=== PATIENT | male | born 1960 | race Two or more races ===

== ENCOUNTER 2023-02-01 07:45 | Inpatient (IN) | payer OTHER, MEDICAID ==
[~2023-02-01] VITALS: Ht 182.9 cm; Wt 89.9 kg
[2023-02-01] VITALS (10 sets, daily range): BP systolic 135–164; BP diastolic 71–95; PULSE 86–119; RESP 8–31; TEMP 102.4–103; O2SAT 92–97
[~2023-02-01 07:45] MED LIST: ASPI-325 PO; ATOR20TA50 PO; LISI-275 PO; MET25T PO; NIC21P TOP; TAMS-35 PO; TICA90TA PO
[2023-02-01] MEDS ORDERED: SODIUM CHLORIDE 0.9% 1,000 ML IV ONE ×3 (08:30→19:00)
[2023-02-01] MEDS ORDERED: ONDANSETRON HCL 4 MG/2 ML VIAL IV ONE (08:30)
[2023-02-01] MEDS ORDERED: PANTOPRAZOLE 40 MG/10 ML VIAL INJ IV ONE (08:30)
[2023-02-01 08:45] LABS: Basophils # (auto) 0.1 10 ^3/uL (0-0.2); Basophils % (auto) 0.5 % (0.0-2.0); Eosinophils # (auto) 0 10 ^3/uL (0-0.8); Hematocrit 45.6 % (41.0-53.0); Hemoglobin 15.1 g/dL (13.5-17.5); Lymphocytes # (auto) 1.5 10 ^3/uL (0.4-5.4); Lymphocytes % (auto) 11.2 % (10.0-50.0); Mean Corpuscular Hemoglobin 27.4 pg (28.0-32.0); Mean Corpuscular Hgb Conc. 33.1 g/dL (32.0-36.0); Mean Corpuscular Volume 82.8 fL (80.0-100.0); Monocytes # (auto) 1.1 10 ^3/uL (0-1.3); Monocytes % (auto) 8.8 % (0.0-12.0); Neutrophils # (auto) 10.3 10 ^3/uL (1.6-8.6); Neutrophils % (auto) 79.5 % (37.0-80.0); Red Blood Cells 5.51 10^6/uL (4.5-5.90); Red Cell Distribution Width 16.4 % (11.8-14.3)
[2023-02-01 09:01] LABS: Alanine Aminotransferase 25 U/L (7-40); Albumin 4.3 g/dL (3.2-4.8); Alkaline Phosphatase 141 U/L (46-116); Anion Gap 7 (5-15); Aspartate Aminotransferase 21 U/L (13-40); BUN/Creatinine Ratio 18.5 (10.0-20.0); Bilirubin, Total 0.8 mg/dL (0.2-1.0); Blood Urea Nitrogen 17 mg/dL (9-23); Calcium 9.9 mg/dL (8.5-10.1); Carbon Dioxide 24 mmol/L (20-30); Chloride 103 mmol/L (98-107); Glucose 114 mg/dL (74-106); Potassium 5.2 mmol/L (3.5-5.1); Sodium 134 mmol/L (136-145); Total Protein 6.9 g/dL (5.7-8.2)
[2023-02-01 09:02] LABS: INR 1.37 (0.9-1.15); Partial Thromboplastin Time 36.7 SEC (24.5-34.5); Prothrombin Time 14.1 sec (9.3-11.8)
[2023-02-01 12:19] LABS: Urine Bacteria NONE SEEN /hpf (None Seen); Urine Blood Negative /uL (Negative); Urine Clarity Clear (Clear); Urine Protein, UAD Negative (Negative); Urine Specific Gravity 1.012 (1.001-1.035); Urine Urobilinogen Normal (Negative); Urine WBC 1 /hpf (0 - 3); Urine pH 6.5 (5.0-8.0)
[2023-02-01 12:22] LABS: Urine Color Straw (Yellow)
[2023-02-01] MEDS ORDERED: levoFLOXacin 500MG 100 ML IV ONE (12:30)
[2023-02-01] MEDS ORDERED: metroNIDAZOLE 500MG/100ML 100 ML IV ONE (12:30)
[2023-02-01] MEDS ORDERED: ONDANSETRON HCL 4 MG/2 ML VIAL IV PRN (12:45)
[2023-02-01] MEDS ORDERED: DOCUSATE SOD 100 MG CAP PO PRN (12:45)
[2023-02-01] MEDS ORDERED: MORPHINE SULFATE INJ 2 MG/ml SYRG IV PRN (12:45)
[2023-02-01] MEDS: SODIUM CHLORIDE 0.9% 1,000 ML IV SCH ×2 (12:45→21:56)
[2023-02-01] MEDS: PANTOPRAZOLE 40mg/50ML NS AE 50 ML IV ONE ×2 (12:51→14:54)
[2023-02-01] MEDS ORDERED: ACETAMINOPHEN 650 MG RECT SUPP PR PRN (14:30)
[2023-02-01] MEDS ORDERED: SODIUM CHLORIDE LOCK 10 ML ONE (14:42)
[2023-02-01] MEDS ORDERED: LIDOCAINE VISCOUS 2% 15ML UD ONE (14:42)
[2023-02-01] MEDS ORDERED: fentaNYL CITRATE 100 MCG/2 ML VL ONE (14:43)
[2023-02-01] MEDS ORDERED: diphenhdrAMINE HCL 50 MG/1 ML VL ONE (14:43)
[2023-02-01] MEDS ORDERED: MIDAZOLAM HCL 5 MG/ML-1ML VIAL ONE (14:43)
[2023-02-01] MEDS ORDERED: hydrALAZINE HCL 20 MG/ML VL IV PRN (14:45)
[2023-02-01] MEDS ORDERED: VANCOMYCIN PER PHARMACY 0 MG IV STA (18:33)
[2023-02-01] MEDS ORDERED: VANCOMYCIN 1GM/250ML 250 ML IV ONE (19:00)
[2023-02-01 19:38] LABS: Hematocrit 43.1 % (41.0-53.0); Hemoglobin 14.5 g/dL (13.5-17.5)
[2023-02-01 19:50] LABS: Anion Gap 8 (5-15); Calcium 8.9 mg/dL (8.7-10.4); Carbon Dioxide 18 mmol/L (20-30); Chloride 107 mmol/L (98-107); Potassium 3.7 mmol/L (3.5-5.1); Sodium 133 mmol/L (136-145)
[2023-02-01 19:55] LABS: BUN/Creatinine Ratio 12.8 (10.0-20.0); Blood Urea Nitrogen 10 mg/dL (9-23); Glucose 101 mg/dL (74-106); INR 1.3 (0.9-1.15); Prothrombin Time 13.4 sec (9.3-11.8)
[2023-02-01] MEDS: TAMSULOSIN HYDROCHLORIDE 0.4 MG CAP PO SCH (20:40)
[2023-02-01] MEDS: SUCRALFATE 1 GM/10 ML ORAL SUSP PO SCH (21:47)
[2023-02-01] MEDS: METOPROLOL TARTRATE 25 MG TAB PO SCH (21:47)
[2023-02-01] MEDS: ATORVASTATIN 20 MG TAB PO SCH (21:48)
[2023-02-01] MEDS ORDERED: VANCOMYCIN PER PHARMACY 0 MG IV SCH (22:15)
[2023-02-02] VITALS (20 sets, daily range): BP systolic 115–174; BP diastolic 62–90; PULSE 78–95; RESP 11–37; TEMP 98.6–100.1; O2SAT 85–98
[2023-02-02 01:49] LABS: COVID19 ANTIGEN SOFIA FIA POSITIVE (NEGATIVE); Rapid Influenza A Negative (Negative); Rapid Influenza B Negative (Negative)
[2023-02-02 05:23] LABS: Basophils # (auto) 0 10 ^3/uL (0-0.2); Basophils % (auto) 0.2 % (0.0-2.0); Eosinophils # (auto) 0 10 ^3/uL (0-0.8); Hematocrit 44.1 % (41.0-53.0); Hemoglobin 14.5 g/dL (13.5-17.5); Lymphocytes # (auto) 2.8 10 ^3/uL (0.4-5.4); Lymphocytes % (auto) 23.9 % (10.0-50.0); Mean Corpuscular Hgb Conc. 32.9 g/dL (32.0-36.0); Mean Corpuscular Volume 81.9 fL (80.0-100.0); Monocytes # (auto) 1.1 10 ^3/uL (0-1.3); Neutrophils # (auto) 7.8 10 ^3/uL (1.6-8.6); Neutrophils % (auto) 66.9 % (37.0-80.0); Nucleated Red Blood Cells % 0.1 %; Red Blood Cells 5.39 10^6/uL (4.5-5.90); Red Cell Distribution Width 16.4 % (11.8-14.3); White Blood Cell 11.7 10^3/uL (4.4-10.8)
[2023-02-02 05:38] LABS: Alanine Aminotransferase 15 U/L (7-40); Albumin 4.1 g/dL (3.2-4.8); Alkaline Phosphatase 110 U/L (46-116); Anion Gap 6 (5-15); Aspartate Aminotransferase 18 U/L (13-40); BUN/Creatinine Ratio 8.9 (10.0-20.0); Blood Urea Nitrogen 8 mg/dL (9-23); Calcium 9.9 mg/dL (8.7-10.4); Carbon Dioxide 24 mmol/L (20-30); Chloride 104 mmol/L (98-107); Glucose 108 mg/dL (74-106); Potassium 4.6 mmol/L (3.5-5.1); Sodium 134 mmol/L (136-145)
[2023-02-02 05:39] LABS: Total Protein 6.8 g/dL (5.7-8.2)
[2023-02-02] MEDS: SUCRALFATE 1 GM/10 ML ORAL SUSP PO SCH ×4 (06:53→22:26)
[2023-02-02] MEDS: SODIUM CHLORIDE 0.9% 1,000 ML IV SCH ×2 (06:53→13:28)
[2023-02-02] MEDS ORDERED: VANCOMYCIN 1GM/250ML 250 ML IV SCH (08:00)
[2023-02-02] MEDS ORDERED: CHOL20002 PO (08:49)
[2023-02-02] MEDS ORDERED: LISINOPRIL 5 MG TAB PO SCH (10:00)
[2023-02-02] MEDS ORDERED: NICOTINE 21MG/24 HR TOPICAL PATCH TD SCH (10:00)
[2023-02-02] MEDS ORDERED: GABA-1250 PO (10:02)
[2023-02-02] MEDS ORDERED: RIV20T PO (10:02)
[2023-02-02] MEDS ORDERED: DOCU-265 PO (10:02)
[2023-02-02] MEDS: levoFLOXacin 500MG 100 ML IV SCH (10:30)
[2023-02-02] MEDS: METOPROLOL TARTRATE 25 MG TAB PO SCH ×2 (10:30→22:27)
[2023-02-02] MEDS ORDERED: OMEP-448 (12:07)
[2023-02-02] MEDS ORDERED: HYDR1TAB97 (12:07)
[2023-02-02] MEDS: TAMSULOSIN HYDROCHLORIDE 0.4 MG CAP PO SCH (17:18)
[2023-02-02] MEDS: PANTOPRAZOLE 40 MG/10 ML VIAL INJ IV SCH (22:26)
[2023-02-02] MEDS: ATORVASTATIN 20 MG TAB PO SCH (22:26)
[2023-02-03] VITALS (8 sets, daily range): BP systolic 117–151; BP diastolic 60–83; PULSE 76–97; RESP 16–22; TEMP 97.5–99.1; O2SAT 92–98
[2023-02-03] MEDS: SODIUM CHLORIDE 0.9% 1,000 ML IV SCH (02:29)
[2023-02-03] MEDS: SUCRALFATE 1 GM/10 ML ORAL SUSP PO SCH ×4 (06:23→22:10)
[2023-02-03 07:02] LABS: Basophils # (auto) 0 10 ^3/uL (0-0.2); Basophils % (auto) 0.5 % (0.0-2.0); Eosinophils # (auto) 0 10 ^3/uL (0-0.8); Eosinophils % (auto) 0.3 % (0.0-7.0); Hematocrit 40.9 % (41.0-53.0); Hemoglobin 13.6 g/dL (13.5-17.5); Lymphocytes # (auto) 2.1 10 ^3/uL (0.4-5.4); Lymphocytes % (auto) 25.7 % (10.0-50.0); Mean Corpuscular Hemoglobin 27.5 pg (28.0-32.0); Mean Corpuscular Hgb Conc. 33.3 g/dL (32.0-36.0); Mean Corpuscular Volume 82.6 fL (80.0-100.0); Monocytes # (auto) 0.7 10 ^3/uL (0-1.3); Monocytes % (auto) 8.8 % (0.0-12.0); Neutrophils # (auto) 5.3 10 ^3/uL (1.6-8.6); Neutrophils % (auto) 64.7 % (37.0-80.0); Nucleated Red Blood Cells % 0.2 %; Red Blood Cells 4.95 10^6/uL (4.5-5.90); White Blood Cell 8.3 10^3/uL (4.4-10.8)
[2023-02-03 07:07] LABS: Alanine Aminotransferase 12 U/L (7-40); Albumin 3.8 g/dL (3.2-4.8); Alkaline Phosphatase 87 U/L (46-116); Anion Gap 7 (5-15); Aspartate Aminotransferase 17 U/L (13-40); BUN/Creatinine Ratio 10.4 (10.0-20.0); Blood Urea Nitrogen 7 mg/dL (9-23); Carbon Dioxide 20 mmol/L (20-30); Chloride 104 mmol/L (98-107); Glucose 104 mg/dL (74-106); Potassium 4.4 mmol/L (3.5-5.1); Sodium 131 mmol/L (136-145)
[2023-02-03 07:08] LABS: Bilirubin, Total 0.9 mg/dL (0.2-1.0); Total Protein 6.4 g/dL (5.7-8.2)
[2023-02-03] MEDS: levoFLOXacin 500MG 100 ML IV SCH (10:03)
[2023-02-03] MEDS: PANTOPRAZOLE 40 MG/10 ML VIAL INJ IV SCH ×2 (10:03→22:11)
[2023-02-03] MEDS: METOPROLOL TARTRATE 25 MG TAB PO SCH ×2 (10:05→22:11)
[2023-02-03] MEDS: TAMSULOSIN HYDROCHLORIDE 0.4 MG CAP PO SCH (18:24)
[2023-02-03] MEDS: ATORVASTATIN 20 MG TAB PO SCH (22:11)
[2023-02-04] VITALS (7 sets, daily range): BP systolic 134–160; BP diastolic 69–93; PULSE 87–106; RESP 16–20; TEMP 98.4–98.7; O2SAT 91–95
[2023-02-04] MEDS: SUCRALFATE 1 GM/10 ML ORAL SUSP PO SCH ×4 (06:46→22:00)
[2023-02-04 08:07] LABS: Hematocrit 40.3 % (41.0-53.0); Hemoglobin 14.2 g/dL (13.5-17.5); Mean Corpuscular Hemoglobin 28.6 pg (28.0-32.0); Mean Corpuscular Hgb Conc. 35.3 g/dL (32.0-36.0); Mean Corpuscular Volume 80.9 fL (80.0-100.0); Red Blood Cells 4.98 10^6/uL (4.5-5.90); Red Cell Distribution Width 16.5 % (11.8-14.3); White Blood Cell 8.3 10^3/uL (4.4-10.8)
[2023-02-04 08:08] LABS: Basophils % (manual) 0 (0.0-2.0); Blast Cells 0; Metamyelocytes % 0; Myelocytes % 0; Promyelocytes % 0; Reactive Lymphocytes 0
[2023-02-04 09:38] LABS: Band Neutrophils % (manual) 2; Eosinophils % (manual) 2 (0-7); Lymphocytes % (manual) 26 (10.0-50.0); Monocytes % (manual) 7 (0-12)
[2023-02-04 09:39] LABS: Anisocytosis Slight; Platelet Estimate Adequate
[2023-02-04] MEDS: PANTOPRAZOLE 40 MG/10 ML VIAL INJ IV SCH ×2 (09:53→22:37)
[2023-02-04] MEDS: levoFLOXacin 500MG 100 ML IV SCH (09:53)
[2023-02-04] MEDS: METOPROLOL TARTRATE 25 MG TAB PO SCH ×3 (09:53→22:00)
[2023-02-04 17:24] LABS: Chloride 103 mmol/L (98-107); Sodium 134 mmol/L (136-145)
[2023-02-04 17:27] LABS: Anion Gap 7 (5-15); Carbon Dioxide 24 mmol/L (20-30)
[2023-02-04 17:32] LABS: Alkaline Phosphatase 118 U/L (46-116); Glucose 111 mg/dL (74-106)
[2023-02-04 17:34] LABS: Aspartate Aminotransferase 87 U/L (13-40); Bilirubin, Total 0.7 mg/dL (0.2-1.0); Total Protein 6.9 g/dL (5.7-8.2)
[2023-02-04] MEDS: TAMSULOSIN HYDROCHLORIDE 0.4 MG CAP PO SCH (17:51)
[2023-02-04 18:13] LABS: Alanine Aminotransferase 59 U/L (7-40); Albumin 4.1 g/dL (3.2-4.8); BUN/Creatinine Ratio 13.2 (10.0-20.0); Blood Urea Nitrogen 10 mg/dL (9-23); Potassium 3.9 mmol/L (3.5-5.1)
[2023-02-04] MEDS: ATORVASTATIN 20 MG TAB PO SCH (22:00)
[2023-02-05] VITALS (7 sets, daily range): BP systolic 110–141; BP diastolic 68–97; PULSE 66–97; RESP 15–18; TEMP 97.5–98.7; O2SAT 94–98
[2023-02-05] MEDS: METOPROLOL TARTRATE 25 MG TAB PO SCH ×2 (09:01→22:42)
[2023-02-05] MEDS: levoFLOXacin 500MG 100 ML IV SCH (09:01)
[2023-02-05] MEDS: PANTOPRAZOLE 40 MG/10 ML VIAL INJ IV SCH ×2 (09:01→22:40)
[2023-02-05] MEDS: SUCRALFATE 1 GM/10 ML ORAL SUSP PO SCH ×3 (12:32→22:40)
[2023-02-05 17:11] LABS: COVID19 ANTIGEN SOFIA FIA POSITIVE (NEGATIVE)
[2023-02-05] MEDS: TAMSULOSIN HYDROCHLORIDE 0.4 MG CAP PO SCH (17:41)
[2023-02-05] MEDS ORDERED: RIVAROXABAN 10 MG TAB PO SCH (18:25)
[2023-02-05] MEDS: ATORVASTATIN 20 MG TAB PO SCH (22:40)
[2023-02-06 05:00] VITALS: BP 126/66; PULSE 80; RESP 18; TEMP 98.3; O2SAT 97
[2023-02-06] MEDS: SUCRALFATE 1 GM/10 ML ORAL SUSP PO SCH ×2 (07:17→12:07)
[2023-02-06 08:00] VITALS: PULSE 77
[2023-02-06] MEDS: PANTOPRAZOLE 40 MG/10 ML VIAL INJ IV SCH (09:44)
[2023-02-06] MEDS: levoFLOXacin 500MG 100 ML IV SCH (09:44)
[2023-02-06] MEDS: METOPROLOL TARTRATE 25 MG TAB PO SCH ×2 (09:49→10:49)
[2023-02-06] MEDS ORDERED: ASPirin-EC 81 mg tab PO SCH (10:00)
[2023-02-06 10:30] VITALS: BP 140/83; PULSE 80; RESP 18; TEMP 97.6; O2SAT 96
[2023-02-06 13:14] VITALS: BP 117/71; PULSE 78; RESP 18; TEMP 97.4; O2SAT 97
[2023-02-06] MEDS ORDERED: LEVO500T91 PO (14:07)
[2023-02-06] MEDS ORDERED: ZOFR4T PO (14:07)
[2023-02-06] MEDS ORDERED: SUCR1TAB PO (14:07)
[2023-02-06 16:54] VITALS: BP 114/66; PULSE 63; RESP 17; TEMP 98.2; O2SAT 93
[2023-02-06] MEDS ORDERED: SUCRALFATE 1 GM TAB PO SCH (17:00)
[2023-02-07] MEDS ORDERED: PANTOPRAZOLE 40 MG TAB PO SCH (10:00)
== END 2023-02-06 17:45 | disposition home or self-care (01) | DRG 871 ==
LOC: EDBD 07:45 → ER 07:45 → TELE 12:48 → TELE-CENTR 17:35 → DOU IN ICU 19:59 → TELE-CENTR 02-02 18:15
PROVIDERS: ADMIT Internal Medicine; ATTEND Internal Medicine
DX: A41.89 Other specified sepsis (principal); J12.82 Pneumonia due to coronavirus disease 2019; U07.1 COVID-19; E87.1 Hypo-osmolality and hyponatremia; I24.9 Acute ischemic heart disease, unspecified; E87.21 Acute metabolic acidosis; K92.2 Gastrointestinal hemorrhage, unspecified; G91.9 Hydrocephalus, unspecified; N13.8 Other obstructive and reflux uropathy; I10 Essential (primary) hypertension; E87.5 Hyperkalemia; E78.00 Pure hypercholesterolemia, unspecified; N40.1 Benign prostatic hyperplasia with lower urinary tract symptoms; F17.210 Nicotine dependence, cigarettes, uncomplicated; E86.0 Dehydration; E78.5 Hyperlipidemia, unspecified; I25.10 Atherosclerotic heart disease of native coronary artery without angina pectoris; Z88.8 Allergy status to other drugs, medicaments and biological substances; Z78.9 Other specified health status; Z82.3 Family history of stroke; Z82.49 Family history of ischemic heart disease and other diseases of the circulatory system; Z83.3 Family history of diabetes mellitus; I25.2 Old myocardial infarction; Z95.5 Presence of coronary angioplasty implant and graft; Z88.0 Allergy status to penicillin; Z79.82 Long term (current) use of aspirin
CPT/HCPCS: 36415; 71045; 74176; 80048; 80053; 81001; 82270; 83605; 83880; 84484; 85007; 85014; 85018; 85025; 85027; 85610; 85730; 86850; 86900; 86901; 87040; 87077; 87081; 87186; 87426; 87804; 93306; 97110; 97116; 97163; 97530; C9113; G0378; J1956; J2250; J2405; J3490

== ENCOUNTER → 2023-08-04 | Day surgery (SDC) | payer MEDICARE, MEDICAID ==
[2023-08-01 10:19] LABS: Basophils # (auto) 0.1 10 ^3/uL (0-0.2); Basophils % (auto) 0.8 % (0.0-2.0); Eosinophils # (auto) 0.2 10 ^3/uL (0-0.8); Eosinophils % (auto) 1.4 % (0.0-7.0); Hematocrit 51.2 % (41.0-53.0); Hemoglobin 17.5 g/dL (13.5-17.5); Lymphocytes # (auto) 3.3 10 ^3/uL (0.4-5.4); Lymphocytes % (auto) 31.4 % (10.0-50.0); Mean Corpuscular Hemoglobin 29.5 pg (28.0-32.0); Mean Corpuscular Hgb Conc. 34.1 g/dL (32.0-36.0); Mean Corpuscular Volume 86.5 fL (80.0-100.0); Monocytes # (auto) 0.7 10 ^3/uL (0-1.3); Monocytes % (auto) 7.2 % (0.0-12.0); Neutrophils # (auto) 6.2 10 ^3/uL (1.6-8.6); Neutrophils % (auto) 59.2 % (37.0-80.0); Nucleated Red Blood Cells % 0.1 %; Red Blood Cells 5.92 10^6/uL (4.5-5.90); Red Cell Distribution Width 14.8 % (11.8-14.3); White Blood Cell 10.4 10^3/uL (4.4-10.8)
[2023-08-01 10:38] LABS: INR 1.07 (0.9-1.15); Partial Thromboplastin Time 27.7 SEC (24.5-34.5); Prothrombin Time 11.3 sec (9.3-11.8)
[2023-08-01 12:22] LABS: Alanine Aminotransferase 16 U/L (7-40); Albumin 4.7 g/dL (3.2-4.8); Alkaline Phosphatase 179 U/L (46-116); Anion Gap 4 (5-15); Aspartate Aminotransferase 18 U/L (13-40); BUN/Creatinine Ratio 10.7 (10.0-20.0); Bilirubin, Total 0.8 mg/dL (0.2-1.0); Blood Urea Nitrogen 11 mg/dL (9-23); Calcium 11.6 mg/dL (8.5-10.1); Carbon Dioxide 29 mmol/L (20-30); Chloride 107 mmol/L (98-107); Glucose 97 mg/dL (74-106); Potassium 4.6 mmol/L (3.5-5.1); Sodium 140 mmol/L (136-145); Total Protein 7.8 g/dL (5.7-8.2)
[~2023-08-04] VITALS: Ht 175.3 cm; Wt 92.1 kg
[~2023-08-04] MED LIST changes: -ASPI-325 PO; +ASPI-543 PO; +CHOL20002 PO; +DOCU-265 PO; +GABA-1250 PO; +HYDR1TAB97; +LEVO500T91 PO; +MIDAZOLAM HCL 2MG/2ML 2ml VIAL (1mg/ml) ONE; +OMEP-448; +ONDANSETRON HCL 4 MG/2 ML VIAL IV ONE; +PANT40TA2 PO; +PROPOFOL 10 MG/ML 20 ML IV ONE; +SUCR1TAB PO; +TRAM50TA2 PO; +ZOFR4T PO; +fentaNYL CITRATE 100 MCG/2 ML VL ONE
[2023-08-04 11:26] VITALS: PULSE 64; RESP 11; TEMP 98.9; O2SAT 99
[2023-08-04 11:56] VITALS: BP 115/70; PULSE 62; RESP 20; O2SAT 95
== END | disposition home or self-care (01) ==
LOC: GI 08:17
PROVIDERS: ATTEND Internal Medicine Gastroenterology
DX: R11.2 Nausea with vomiting, unspecified (principal); K29.50 Unspecified chronic gastritis without bleeding; K44.9 Diaphragmatic hernia without obstruction or gangrene; K22.10 Ulcer of esophagus without bleeding; I10 Essential (primary) hypertension; I25.2 Old myocardial infarction; G91.9 Hydrocephalus, unspecified; Z95.820 Peripheral vascular angioplasty status with implants and grafts; Z86.16 Personal history of COVID-19; Z88.1 Allergy status to other antibiotic agents; Z83.3 Family history of diabetes mellitus; Z82.3 Family history of stroke; Z82.49 Family history of ischemic heart disease and other diseases of the circulatory system
CPT/HCPCS: 36415; 80053; 85025; 85610; 85730; 88305; 88312; 88342; J2250; J2704; J3010; J7030